=== PATIENT | male | born 1980 | race Caucasian/White ===

== ENCOUNTER → 2022-01-21 | Outpatient (CLI) | payer OTHER ==
--- NOTE | 2022-01-21 09:51 | US ---
EXAMINATION TYPE: US abdomen complete DATE OF EXAM: 01/21/2022 COMPARISON: NONE CLINICAL HISTORY: K52.89 colitis. Hx colitis. Elevated liver enzymes. EXAM MEASUREMENTS: Liver Length: 19.3 cm Gallbladder Wall: 0.19 cm CBD: 0.42 cm Spleen: 12.1 cm Right Kidney: 10.2 x 5.5 x 4.4 cm Left Kidney: 10.5 x 5.4 x 5.1 cm Limited due to overlying gas. Pancreas: Tail not well seen. Liver: Appears enlarged and heterogeneous. Increased echogenicity and attenuation. Hypoechoic area s een anterior to the klaus hepatis suggestive of possible fatty sparing measuring 2.6 x 3.2 x 2.3 cm. Gallbladder: Folds seen. Evidence for sonographic Parry's sign: No. CBD: Portions seen appear wnl, limited Spleen: Appears wnl Right Kidney: No hydronephrosis or masses seen Left Kidney: No hydronephrosis or masses seen Upper IVC: Not well seen. Abd Aorta: Appears wnl IMPRESSION: Hepatomegaly with underlying hepatic steatosis and areas of focal fatty sparing.
== END | disposition home or self-care (01) ==
LOC: RADUSWWP 08:46
PROVIDERS: ATTEND Internal Medicine Gastroenterology
DX: K52.89 Other specified noninfective gastroenteritis and colitis (principal); R16.0 Hepatomegaly, not elsewhere classified; K76.89 Other specified diseases of liver
CPT/HCPCS: 76700

== ENCOUNTER → 2025-03-04 | Day surgery (SDC) | payer OTHER ==
[2025-03-01 15:57] VITALS: BMI 26.4
[~2025-03-04] MED LIST: PROPOFOL 10 MG/ML 20 ML VIAL IV ONE
[2025-03-04] MEDS: IV FLUID CONTINUATION 1,000 ML IV ONE (15:18)
[2025-03-04 15:21] VITALS: TEMP 97
[2025-03-04] MEDS: LACTATED RINGERS 1,000 ML IV SCH (15:29)
--- NOTE | 2025-03-04 16:00 | P.PCN ---
Date of Procedure: 03/04/25 Procedure(s) Performed: BRIEF HISTORY: Patient is a 44-year-old pleasant white male scheduled for an elective colonoscopy as a part of screening for longstanding history of ulcerative colitis diagnosed at age 22. He is intended remission. Not on any maintenance medications for 5 years. PROCEDURE PERFORMED: Colonoscopy with random biopsies. PREOPERATIVE DIAGNOSIS: Screening for longstanding history of ulcerative colitis. IV sedation per Anesthesia. PROCEDURE: After informed consent was obtained, the patient, was brought into the endoscopy unit. IV sedation was administered by Anesthesia under continuous monitoring. Digital rectal examination was normal. Initially the Olympus CF-160 flexible video colonoscope was then inserted in the rectum, gradually advanced into the cecum without any difficulty. Careful examination was performed as the scope was gradually being withdrawn. Ileocecal valve and the appendiceal orifice were visualized and appeared normal. Prep was excellent. Mucosa of the cecum, ascending colon, transverse colon, descending colon had scattered pseudopolyps. There was active colitis involving the, sigmoid colon, and rectum with mucosal erythema, friability, granularity and spontaneous oozing extending up to 30 cm from the anal verge and multiple biopsies were done from this area.. Biopsies were done from cecum to rectum at every 10 cm intervals to rule of dysplasia. Retroflexion was performed in the rectum and no lesions were seen. The patient tolerated the procedure well. IMPRESSION: Mucosal erythema, friability and granularity with spontaneous oozing involving the rectum and sigmoid colon at 30 cm from the anal verge status post multiple biopsies Rest of the colon appeared normal Scattered pseudopolyps noted throughout the entire colon RECOMMENDATIONS: Findings of this examination were discussed with the patient as well as his family. He was advised to follow the biopsy results. Follow-up in the office in 2 weeks and he will be started on oral mesalamine. If the biopsy does not show any evidence of dysplasia he can have repeat colonoscopy in 2 years..
[2025-03-04 16:10] VITALS: BP 128/79; PULSE 70; RESP 16
== END ==
LOC: ORWHC2ENDO 14:33
PROVIDERS: ATTEND Internal Medicine Gastroenterology
DX: K62.89 Other specified diseases of anus and rectum (principal); K51.90 Ulcerative colitis, unspecified, without complications
CPT/HCPCS: 45380; J2704; 88305